=== PATIENT | female | born 1995 | race Caucasian/White ===

== ENCOUNTER 2017-10-07 07:00 | Inpatient (IN) ==
[2017-10-07] MEDS ORDERED: ceFAZolin 2,000 MG in PREMIX 1 EACH IV ONE (07:49)
[2017-10-07] MEDS ORDERED: LACTATED RINGERS 1,000 ML IV ONE (07:51)
[2017-10-07] MEDS ORDERED: CITRIC ACID/SODIUM CITRATE 30 ML UDCUP PO ONE (07:51)
[2017-10-07] MEDS ORDERED: FAMOTIDINE 20 MG/2 ML VIAL IV ONE (07:51)
[2017-10-07 08:26] LABS: Basophils % 0.3 % (0.0-0.8); Eosinophils # 0.1 10*3/uL (0.0-0.87); Eosinophils % 0.6 % (0.00-10.9); Hematocrit 33.5 VOL% (35.7-47.0); Hemoglobin 10.4 GM/DL (12.0-16.0); Immature Granulocytes % 0.6 %; Immature Granulocytes Absolute 0.06 #; Lymphocytes # 1.6 10*3/uL (1.4-4.0); Lymphocytes % 16.4 % (21.3-54.2); Mean Corpuscular Hemoglobin 26 PG (27-34); Mean Corpuscular Volume 84.8 FL (87-102); Mean Platelet Volume 12.7 FL (9.6-12.0); Monocytes # 0.5 10*3/uL (0.11-0.8); Monocytes % 5.2 % (1.7-12.7); Neutrophils # 7.6 10*3/uL (1.4-7.4); Neutrophils % 76.9 % (38.7-73.9); Platelet Count 176 T/CUMM (130-400); Red Blood Count 3.95 MC/CUMM (3.8-5.5); Red Cell Distribution Width 14.2 % (9.3-17.3); White Blood Count 9.8 T/CUMM (4-12)
[2017-10-07] MEDS ORDERED: OXYTOCIN/LR 20 UNIT/1,000 ML BAG IV ONE ×3 (08:33→10:46)
[2017-10-07 08:57] LABS: Alanine Aminotransferase 11 U/L (13-56); Albumin 2.9 G/DL (3.4-5.0); Alkaline Phosphatase 209 U/L (45-117); Aspartate Amino Transferase 9 U/L (0-37); Bilirubin,Total < 0.39 MG/DL (0.2-1.0); Blood Urea Nitrogen 10 MG/DL (7-18); Calcium 8.6 MG/DL (8.5-10.1); Glucose 80 MG/DL (74-106); Osmolality,Calculated 270.8 MOS/KG (273-304); Sodium 137 MMOL/L (136-145); Total Protein 6.8 G/DL (6.4-8.3)
[2017-10-07] MEDS: LACTATED RINGERS 1,000 ML IV SCH ×4 (09:28→23:49)
[2017-10-07] MEDS ORDERED: ONDANSETRON 4 MG/2 ML VIAL ONE (10:13)
[2017-10-07] MEDS ORDERED: MIDAZOLAM 2 MG/2 ML VIAL ONE (10:45)
[2017-10-07] MEDS ORDERED: MORPHINE 10 MG/10 ML VIAL ONE (10:45)
[2017-10-07] MEDS ORDERED: ONDANSETRON 4 MG/2 ML VIAL IV PRN (10:46)
[2017-10-07] MEDS ORDERED: SIMETHICONE CHEW 80 MG TABLET PO PRN (10:46)
[2017-10-07] MEDS ORDERED: MAGNESIUM HYDROXIDE SUSP 30 ML UDCUP PO PRN (10:46)
[2017-10-07] MEDS ORDERED: ACETAMINOPHEN 325 MG TABLET PO PRN (10:46)
[2017-10-07] MEDS ORDERED: RHO(D) IMMUNE GLOBULIN 300 MCG SYRINGE IM ONE (11:00)
[2017-10-07 12:07] LABS: Apearance,Urine CLEAR (Clear); Bilirubin,Urine Negative (Negative); Blood, Urine Negative (Negative); Glucose,Urine (UA) Negative (Negative); Ketones,Urine Negative (Negative); Mucus,Urine Occasional /LPF (Occasional); Nitrite,Urine Negative (Negative); Protein,Urine Negative; RBC,Urine 1 /HPF (0-4); Squamous Epithelial Cell,Urine Occasional /HPF (0-10); Urine Color Straw (Yellow); Urine Specific Gravity 1.006 (1.001-1.035); Urine Urobilinogen < 2.0 EU/DL (0.2-1.0); WBC,Urine <1 /HPF (0-6)
[2017-10-07] MEDS ORDERED: PHENYLEPHRINE 1 MG/10 ML SYRINGE IV ONE (13:35)
[2017-10-07] MEDS ORDERED: MEPERIDINE 50 MG/1 ML VIAL IV PRN (14:31)
[2017-10-07] MEDS ORDERED: MEPERIDINE 25 MG/1 ML VIAL ONE (14:33)
[2017-10-07] MEDS: IBUPROFEN 800 MG TABLET PO PRN ×2 (17:32→18:50)
[2017-10-07] MEDS: oxyCODONE/ACETAMINOPHEN 5-325 MG TABLET PO PRN ×2 (18:50→23:49)
[2017-10-08] MEDS: DOCUSATE SODIUM 100 MG CAPSULE PO SCH ×3 (01:41→20:52)
[2017-10-08] MEDS: LACTATED RINGERS 1,000 ML IV SCH ×2 (01:55→06:09)
[2017-10-08] MEDS: IBUPROFEN 800 MG TABLET PO PRN (05:59)
[2017-10-08] MEDS: oxyCODONE/ACETAMINOPHEN 5-325 MG TABLET PO PRN ×5 (05:59→21:29)
[2017-10-08 06:09] LABS: Hemoglobin 6.7 GM/DL (12.0-16.0); Red Cell Distribution Width 14.2 % (9.3-17.3)
[2017-10-08 06:13] LABS: Basophils % 0.2 % (0.0-0.8); Eosinophils # 0.1 10*3/uL (0.0-0.87); Eosinophils % 1.5 % (0.00-10.9); Hematocrit 21.4 VOL% (35.7-47.0); Immature Granulocytes Absolute 0.09 #; Lymphocytes # 1.9 10*3/uL (1.4-4.0); Lymphocytes % 21.1 % (21.3-54.2); Mean Corpuscular HGB Conc 31.3 GM/DL (32-36); Mean Corpuscular Hemoglobin 27 PG (27-34); Mean Corpuscular Volume 85.3 FL (87-102); Mean Platelet Volume 12.3 FL (9.6-12.0); Monocytes # 0.6 10*3/uL (0.11-0.8); Monocytes % 6.6 % (1.7-12.7); Neutrophils # 6.1 10*3/uL (1.4-7.4); Neutrophils % 69.6 % (38.7-73.9); Platelet Count 124 T/CUMM (130-400); Red Blood Count 2.51 MC/CUMM (3.8-5.5); White Blood Count 8.8 T/CUMM (4-12)
[2017-10-08] MEDS: FERROUS SULFATE 325 MG TABLET PO SCH ×2 (09:07→20:51)
[2017-10-08] MEDS: MULTIVITAMIN (PRENATAL) TABLET PO SCH (09:07)
[2017-10-08 11:04] LABS: Hematocrit 25.8 VOL% (35.7-47.0)
[2017-10-08 11:07] LABS: Hemoglobin 8.2 GM/DL (12.0-16.0)
[2017-10-09] MEDS: oxyCODONE/ACETAMINOPHEN 5-325 MG TABLET PO PRN ×3 (01:28→10:54)
[2017-10-09 07:38] VITALS: BP 113/63
[2017-10-09] MEDS: MULTIVITAMIN (PRENATAL) TABLET PO SCH (09:44)
[2017-10-09] MEDS: FERROUS SULFATE 325 MG TABLET PO SCH (09:44)
[2017-10-09] MEDS: DOCUSATE SODIUM 100 MG CAPSULE PO SCH (09:44)
[2017-10-09] MEDS: IBUPROFEN 800 MG TABLET PO PRN (10:51)
== END 2017-10-09 12:35 | disposition home or self-care (01) | DRG 766 ==
LOC: N.LDOUT 07:00 → N.LD 07:04 → N.OB 13:08
PROVIDERS: ADMIT Obstetrics & Gynecology; ATTEND Obstetrics & Gynecology
PROC: LDCSECT (ICD-10-PCS; 2017-10-07 08:00)

== ENCOUNTER 2019-01-19 06:57 | Inpatient (IN) ==
[2019-01-19] MEDS ORDERED: ceFAZolin 2,000 MG in PREMIX 1 EACH IV ONE (07:32)
[2019-01-19] MEDS ORDERED: FAMOTIDINE 20 MG/2 ML VIAL IV ONE (07:32)
[2019-01-19] MEDS ORDERED: CITRIC ACID/SODIUM CITRATE 30 ML UDCUP PO ONE (07:32)
[2019-01-19] MEDS ORDERED: LACTATED RINGERS 1,000 ML IV SCH ×2 (08:00→11:00)
[2019-01-19 08:06] LABS: Basophils % 0.2 % (0.0-0.8); Eosinophils # 0.2 10*3/uL (0.0-0.87); Eosinophils % 2.2 % (0.00-10.9); Hematocrit 31.9 VOL% (35.7-47.0); Hemoglobin 9.7 GM/DL (12.0-16.0); Immature Granulocytes % 0.8 %; Immature Granulocytes Absolute 0.07 #; Lymphocytes # 1.1 10*3/uL (1.4-4.0); Lymphocytes % 12.5 % (21.3-54.2); Mean Corpuscular HGB Conc 30.4 GM/DL (32-36); Mean Corpuscular Volume 82.4 FL (87-102); Mean Platelet Volume 12.3 FL (9.6-12.0); Monocytes % 7.2 % (1.7-12.7); Neutrophils % 77.1 % (38.7-73.9); Platelet Count 162 T/CUMM (130-400); Red Blood Count 3.87 MC/CUMM (3.8-5.5); Red Cell Distribution Width 14.5 % (9.3-17.3); White Blood Count 8.4 T/CUMM (4-12)
[2019-01-19] MEDS ORDERED: LACTATED RINGERS 1,000 ML IV ONE (08:08)
[2019-01-19] MEDS ORDERED: OXYTOCIN/LR 20 UNIT/1,000 ML BAG IV ONE ×2 (09:00→10:35)
[2019-01-19] MEDS ORDERED: EPINEPHrine 1 MG/ML VIAL ONE (09:23)
[2019-01-19] MEDS ORDERED: KETOROLAC 60 MG/2 ML VIAL IM ONE (09:23)
[2019-01-19] MEDS ORDERED: PHENYLEPHRINE 1 MG/10 ML SYRINGE IV ONE ×2 (09:23→10:54)
[2019-01-19] MEDS ORDERED: ONDANSETRON 4 MG/2 ML VIAL ONE (09:23)
[2019-01-19] MEDS ORDERED: MORPHINE 10 MG/10 ML VIAL ONE (09:23)
[2019-01-19] MEDS ORDERED: BUPIVACAINE 0.5% 50 ML VIAL ONE (09:23)
[2019-01-19] MEDS ORDERED: DEXAMETHASONE 4 MG/1 ML VIAL ONE (09:23)
[2019-01-19] MEDS ORDERED: fentaNYL 100 MCG/2 ML VIAL ONE (09:23)
[2019-01-19] MEDS ORDERED: BUPIVACAINE SPINAL 0.75% 2 ML AMP SPINAL ONE (09:23)
[2019-01-19] MEDS ORDERED: METHYLERGONOVINE 0.2 MG/1 ML AMP ONE (09:25)
[2019-01-19] MEDS ORDERED: ACETAMINOPHEN 325 MG TABLET PO PRN (10:35)
[2019-01-19] MEDS ORDERED: MAGNESIUM HYDROXIDE SUSP 30 ML UDCUP PO PRN (10:35)
[2019-01-19] MEDS ORDERED: ONDANSETRON 4 MG/2 ML VIAL IV PRN (10:35)
[2019-01-19] MEDS ORDERED: RHO(D) IMMUNE GLOBULIN 300 MCG SYRINGE IM ONE (10:35)
[2019-01-19] MEDS ORDERED: ceFAZolin 1,000 MG in SYRINGE 1 EACH IV SCH (11:00)
[2019-01-19] MEDS ORDERED: hydrOXYzine HCL 25 MG/1 ML VIAL IM PRN (11:04)
[2019-01-19] MEDS ORDERED: diphenhydrAMINE 50 MG/1 ML VIAL IV PRN (11:04)
[2019-01-19] MEDS ORDERED: HYDROmorphone 2 MG/1 ML VIAL IV PRN (11:04)
[2019-01-19 11:12] LABS: Apearance,Urine CLEAR (Clear); Bilirubin,Urine Negative (Negative); Blood, Urine Negative (Negative); Glucose,Urine (UA) Negative (Negative); Ketones,Urine 5 mg/dL (Negative); Mucus,Urine Occasional /LPF (Occasional); Nitrite,Urine Negative (Negative); Protein,Urine Negative; RBC,Urine 1 /HPF (0-4); Squamous Epithelial Cell,Urine Occasional /HPF (0-10); Urine Color Yellow (Yellow); Urine Urobilinogen < 2.0 EU/DL (0.2-1.0); WBC,Urine 2 /HPF (0-6)
[2019-01-19] MEDS: KETOROLAC 30 MG/1 ML VIAL IV SCH ×2 (16:51→23:30)
[2019-01-19] MEDS: oxyCODONE/ACETAMINOPHEN 5-325 MG TABLET PO PRN (18:24)
[2019-01-20] MEDS ORDERED: ceFAZolin 1,000 MG in SYRINGE 1 EACH IV SCH
[2019-01-20] MEDS: IBUPROFEN 800 MG TABLET PO PRN ×3 (03:52→22:53)
[2019-01-20] MEDS: oxyCODONE/ACETAMINOPHEN 5-325 MG TABLET PO PRN ×4 (03:52→22:53)
[2019-01-20 05:50] LABS: Basophils % 0.2 % (0.0-0.8); Eosinophils # 0.2 10*3/uL (0.0-0.87); Eosinophils % 1.9 % (0.00-10.9); Hematocrit 24.9 VOL% (35.7-47.0); Immature Granulocytes % 0.6 %; Immature Granulocytes Absolute 0.05 #; Lymphocytes # 1.6 10*3/uL (1.4-4.0); Lymphocytes % 19.7 % (21.3-54.2); Mean Corpuscular HGB Conc 30.5 GM/DL (32-36); Mean Corpuscular Volume 83.8 FL (87-102); Mean Platelet Volume 12.1 FL (9.6-12.0); Monocytes % 11.2 % (1.7-12.7); Neutrophils % 66.4 % (38.7-73.9); Red Cell Distribution Width 14.6 % (9.3-17.3)
[2019-01-20 06:04] LABS: Red Blood Count 2.97 MC/CUMM (3.8-5.5)
[2019-01-20 06:05] LABS: Hemoglobin 7.6 GM/DL (12.0-16.0); Platelet Count 129 T/CUMM (130-400)
[2019-01-20] MEDS ORDERED: KETOROLAC 30 MG/1 ML VIAL IV SCH (06:30)
[2019-01-20] MEDS: KETOROLAC 30 MG/1 ML VIAL IV SCH (06:31)
[2019-01-20] MEDS ORDERED: diphenhydrAMINE CAP 25 MG CAPSULE PO PRN (06:31)
[2019-01-20] MEDS ORDERED: diphenhydrAMINE CAP 25 MG CAPSULE ONE (06:34)
[2019-01-20] MEDS: SIMETHICONE CHEW 80 MG TABLET PO PRN (09:14)
[2019-01-20] MEDS: MULTIVITAMIN (PRENATAL) TABLET PO SCH (09:15)
[2019-01-20] MEDS: DOCUSATE SODIUM 100 MG CAPSULE PO SCH ×2 (09:15→20:47)
[2019-01-20] MEDS: FERROUS SULFATE 325 MG TABLET PO SCH (20:48)
[2019-01-21] MEDS: oxyCODONE/ACETAMINOPHEN 5-325 MG TABLET PO PRN ×2 (04:35→08:51)
[2019-01-21 07:46] VITALS: BP 118/80
[2019-01-21] MEDS: SIMETHICONE CHEW 80 MG TABLET PO PRN (08:51)
[2019-01-21] MEDS: DOCUSATE SODIUM 100 MG CAPSULE PO SCH (08:51)
[2019-01-21] MEDS: MULTIVITAMIN (PRENATAL) TABLET PO SCH (08:51)
[2019-01-21] MEDS: FERROUS SULFATE 325 MG TABLET PO SCH (08:51)
[2019-01-21] MEDS ORDERED: MEASLES/MUMPS/RUBELLA VACCINE 0.5 ML VIAL SUBCUT ONE (11:56)
== END 2019-01-21 12:30 | disposition home or self-care (01) | DRG 785 ==
LOC: N.LD 06:57 → N.OB 13:43
PROVIDERS: ADMIT Obstetrics & Gynecology; ATTEND Obstetrics & Gynecology